=== PATIENT | female | born 1990 | race Caucasian/White ===

== ENCOUNTER 2019-07-09 17:46 | Emergency (ER) | payer SELFPAY ==
--- OUTSIDE RECORDS SUMMARY | 2019-07-09 17:48 | XMS REPORT ---
:1990 Author Organization [facility] t Address [facility] [place] [address] Care Team Providers Name Role Phone Unavailable Unavailable Unavailable Problems This patient has no known problems. Allergies, Adverse Reactions, Alerts This patient has no known allergies or adverse reactions. Medications Ordered Filled Start Stop Current Ordering Indication Dosage Frequency Signature Comments Components Medication Medication Date Date Medication? Clinician (SIG) Name Name Loestrin Fe Loestrin Fe No 1 Q1D Loestrin /20 1/20 Fe /20 (28-Day) 1 (28-Day) 1 (28-Day) 1 mg-20 mcg mg-20 mcg mg-20 mcg (21)/75 mg (21)/75 mg (21)/75 mg (7) tablet (7) tablet (7) tablet Take 1 Take 1 Take 1 tablet tablet tablet every day every day every day by oral by oral by oral route. route. route. Vital Signs Vital Name Observation Time Observation Value Comments BP Diastolic 2019-04-21 00:00:00 78 mm[Hg] Height 2019-04-21 00:00:00 66 [in_i] BP Systolic 2019-04-21 00:00:00 136 mm[Hg] Body Weight 2019-04-21 00:00:00 135 [lb_av] Procedures and Interventions Procedure Date / Time Performed Performing Clinici an US, transvaginal 2019-04-21 00:00:00 Tubal Ligation 2015-04-03 00:00:00 Plan of Care Planned Activity Planned Date Comments Encounters Start End Encounter Admission Attending Care Care Encounter Date/Time Date/Time Type Type Clinicians Facility Department ID 2019-04-21 2019-04-21 Gracie Portillo [facility] [place] - 00:00:00 00:00:00 BEATRICE Nur: Mohamud [address], [place], [place] SPECIAL PROCEDURES TECHNOLOGIST [phone], Ph.
--- OUTSIDE RECORDS SUMMARY | 2019-07-09 17:49 | XMS REPORT | Summary of Care ---
:1990 Author Organization [facility] Address [address] [place] [id number] Care Team Providers Name Role Phone Fuentes Walker MD Primary Care Provider Reason for Visit Reason Comments Notification health maintenance Encounter Details Date Type Department Care Team Description 10/12/2018 Telephone [facility] Health Wellness Des Walker III, N otification (health and Outreach MD maintenance) [address] [facility] [address] [place], [place] [phone] Allergies No Known Allergiesdocumented as of this encounter (statuses as of 10/12/2018) Medications Medication Sig Dispensed Refills Start Date End Date Status multivitamin Take 1 Tab by 100 Tab 2 07/16/2012 Active 90-1-50 mg tablet mouth daily. cyclobenzaprine Take 1 tablet by 10 tablet 0 08/10/2015 Active (FLEXERIL) 5 mg tablet mouth at bedtime as needed for Muscle Spasms. naproxen sodium Take 1 tablet by 14 tablet 0 08/10/2015 Active (ANAPROX) 550 mg tablet mouth 2 (two) times daily with meals. acetaminophen-codeine Take 1 tablet by 20 tablet 0 08/10/2015 Active (TYLENOL-CODEINE #3) mouth every 6 300-30 mg tablet (six) hours as needed for Pain (scale 7-10). ibuprofen 800 mg tablet Take 1 tablet by 30 tablet 0 8 Active mouth every 8 (eight) hours. traMADOL 50 mg tablet Take 1 tablet by 30 tablet 0 03/14/2017 Active mouth every 6 (six) hours as needed for Pain (scale 4-6). traMADOL 50 mg tablet Take 1 tablet by 30 tablet 0 03/14/2017 Active mouth every 6 (six) hours as needed for Pain (scale 4-6). venlafaxine XR 37.5 mg Take 1 capsule 90 capsule 3 05/26/2018 Active 24 hr by mouth daily capsuleIndications: with breakfast. Depression, unspecified depression type ondansetron (ZOFRAN Take 1 tablet by 14 tablet 0 09/04/2018 Active ODT) 4 mg mouth every 8 disintegrating (eight) hours as tabletIndications: needed for Lower abdominal pain Nausea and Vomiting (N/V). documented as of this encounter (statuses as of 10/12/2018) Active Problems Problem Noted Date Rubella immune 08/07/2012 Immune to varicella 08/07/2012 Chlamydia trachomatis infection of lower genitourinary sites 07/31/2012 Need for prophylactic vaccination with unspecified com bined vaccine 07/31/2012 Overview: Needs a Tdap this Insufficient care 07/16/2012 documented as of this encounter (statuses as of 10/12/2018) Immunizations Name Administration Dates Next Due Td 03/10/2011 documented as of this encounter Social History Tobacco Use Types Packs/Day Years Used Date Current Every Day Smoker Cigarettes 0.5 3 Smokeless Tobacco: Never Used Alcohol Use Drinks/Week oz/Week Comments No Sex Assigned at Date Recorded Not on file Job Start Date Occupation Industry Not on file Not on file Not on file Travel History Travel Start Travel End No recent travel history available. documented as of this encounter Last Filed Vital Signs Not on filedocumented in this encounter Plan of Treatment Health Maintenance Due Date Last Done Comments PNEUMOCOCCAL 0-64 YEARS COMBINED SERIES (1 of 1 - 09/19/1997 PPSV23) VARICELLA VACCINES (1 of 2 - 13+ 2-dose series) 09/19/2004 DTaP,Tdap,and Td Vaccines (1 - Tdap) 03/11/2011 03/10/2011 PAP SMEAR 09/19/2012 INFLUENZA VACCINE 11/08/2018 documented as of this encounter Results Not on filedocumented in this encounter Insurance Payer Benefit Plan / Subscriber ID Effective Dates Phone Addre ss Type Group CONTINUUM CONTINUUM [id number] CLAIM 2015-[employer] Agency GENERIC GENERIC t documented as of this encounter
--- OUTSIDE RECORDS SUMMARY | 2019-07-09 17:49 | XMS REPORT | Encounter Summary ---
:1990 Author Reason for Visit problem visit Instructions 1. Intermenstrual bleeding - irr egular pap, IG + CT/NG/TV CBC w/ auto diff TSH, ultra-sensitive, seru m testosterone, free + total , serum insulin, serum estrogen, total, serum US, transvaginal Loestrin Fe 03/29 (28-Day) 1 mg-20 mcg (21)/75 mg (7) tablet Discussion Note Pelvic exam performed. Ppa obtained . Reviewed differential dx and possible tx. Will order hormone labs today and send o rder for TVUS to [facility]. Will send script to pharmacy for Loestrin 1 po qd x 28 days. Will notify patient with results and POC. rtc prn. ml Patient educational handouts: No information available. Plan of Care Reminders Provider Appointments None recorded. Lab Pap, IG + [facility] CT/NG/TV 04/21/2019 CBC W/ Auto [facility] Diff 04/21/2019 TSH, [facility] Ultra-sensitive, Serum 04/21/2019 Testosterone, [facility] Free + Total, Serum 04/21/2019 Insulin, Serum [facility] 04/21/2019 Estrogen, [facility] Total, Serum 04/21/2019 Referral None recorded. Procedures None recorded. Surgeries None recorded. Imaging US, [facility] Trans[facility]aginal 04/21/2019 [facility] ([facility]) Medications Name Start Date Loestrin Fe 03/29 (28-Day) 1 mg-20 mcg (21)/75 mg (7) t ablet Take 1 tablet every day by oral route. Medications Administered None recorded. Vitals Height Weight BMI Blood Pressure 5 ft 6 in 135 lbs 21.8 kg/m2 136/78 mm[Hg] Results Lab Results None recorded. Allergies Code Code System Name Reaction Severity Status Onset NKDA Problems No Known Problems Procedures Date Name Performed by 04/03/2015 Tubal Ligation Information not avai lable 04/21/2019 US, Transvaginal [facility] ([facility]) [address] [place] [address] (Work Place) Vaccine List None recorded. Social History Tobacco Smoking Status Never Smoker Past Encounters 04/21/2019 Intermenstrual Bleeding - Irregular Gracie Lindsey Nur, NUT PROCESS HELPER: [address], [place] [phone], Ph. History of Present Illness Note: <p>Patient is 28 yo female in c/o DUB since february. States LMP 04/15/19 but since february will stop bleeding for 5 days max then start again. heavy with pelvic pain. Hx of BTL. Last pap- 2015. Denies any new dx or stressors recently. ml</p> Review of Systems [facility] DiClemen te Reported By: Patient Constitutional: Constitutional: no fatigue, no fever, no significant weight gain, no significant weight loss, (normal) appetite Skin: Skin: no abnormal moles, no rashes, no itching Eyes: Eyes: no irritation, no visi on changes, does not wear glasses or contacts ENMT: ENT: no hearing loss, no ear pain, no nose/sinus problems, no sore throat Respiratory: Respiratory: no dyspnea / sh ortness of breath, no wheezing, no cough Cardiovascular: Cardiovascular: no chest hayde n, no palpitations, no orthopnea, no leg swelling Gastrointestinal: Gastrointestinal: no nausea, no vomiting, no diarrhea, no constipation, no heartburn, no abdominal pain Musculoskeletal: Musculoskeletal: no muscle a ches, no arthralgias/joint pain, no back pain Hematologic/Lymphatic: Hematologic/Lymphatic no bru ising, (normal) excessive bleeding Genitourinary: Urinary symptoms no urinary urgency, no urinary frequency, no dysuria, no urinary incontin ence, no flank pain. Menstrual: no PMDD symptoms, excessive ble eding during period (menorrhagia), pain with periods (dysmenorr hea). Gynecologic no vaginal discharge, no vaginal itchin g, no genital lesion, genital: pelvic pain breast symptoms: Breast no breast lump, no br east pain, no breast tenderness, no nipple discharge Endocrine: Menopausal: no menopausal sy mptoms Neurological: Neurologic: no weakness, no dizziness, no spinning dizziness (vertigo), no headaches Psychological: Psych: no depression, no sle ep disturbances, no anxiety Allergic/Immunologic: Allergy/Immunologic: no runn y nose, no itching of eyes/throat, no hives, no frequent sneezi ng Physical Exam Brief Pelvic Exam Reported By: Patient Skin: Appearance: no rashes, no le sions Female Genitalia: Vulva: no masses, no atrophy , no lesions. Vagina: no tenderness, no erythema, no abnormal vagina l discharge, no vesicle(s) or ulcers, no cystocele, no rectocele, normal atrophy; blood noted in vault. ml. Cervix: grossly normal, no discharge, no cervical motion tenderness, sample taken for a Pap smear. Uterus: normal size, normal shape, midline, no ut erine prolapse, mobile, non-tender. Bladder/Urethra: normal meat us, no urethral discharge, no urethral mass, bladder non distended. Adnexa/Parametria: no parametrial tenderness, no parametrial m ass, no adnexal tenderness, no ovarian mass
--- NOTE | 2019-07-09 19:34 | EDPHYS ---
Physician Documentation [facility] Name: Enma Holley Age: 28 yrs Sex: Female : 1990 Arrival Date: 07/09/2019 Time: 17:49 Bed 23 Private MD: ED Physician Chong Mcclain HPI: 07/08 19:33 This 28 yrs old Female presents to ER via Ambulatory with complaints of kb Insect Bite. 19:33 The patient presents with an abscess of the right quadriceps. Description: kb erythematous, swollen, warm. Onset: The symptoms/episode began/occurred 4 day(s) ago. Possible cause(s): unknown. Associated signs and symptoms: Pertinent positives: erythema, swelling, Pertinent negatives: discharge, drainage, foreign body sensation, fever, headache, nausea, shortness of breath, vomiting. Modifying factors: the symptoms are alleviated by nothing, the symptoms are aggravated by pressure, squeezing the lesion and expressing the contents, touching. Severity of symptoms: At their worst the symptoms were mild, in the emergency department the symptoms are unchanged. The patient has not experienced similar symptoms in the past. The patient has not recently seen a physician. 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 - Social history:: Smoking status: Patient denies any tobacco usage or history of. ROS: 19:31 Constitutional: Negative for fever, chills, and weight loss, Cardiovascular: Negative kb for chest pain, palpitations, and edema, Respiratory: Negative for shortness of breath, cough, wheezing, and pleuritic chest pain, Abdomen/GI: Negative for abdominal pain, nausea, vomiting, diarrhea, and constipation, Back: Negative for injury and pain, MS/Extremity: Negative for injury and deformity, Neuro: Negative for headache, weakness, numbness, tingling, and seizure. 19:31 Skin: Positive for abscess, of the right quadriceps. Exam: 19:31 Constitutional: This is a well developed, well nourished patient who is awake, alert, kb and in no acute distress. Head/Face: Normocephalic, atraumatic. Chest/axilla: Normal chest wall appearance and motion. Nontender with no deformity. No lesions are appreciated. Cardiovascular: Regular rate and rhythm with a normal S1 and S2. No gallops, murmurs, or rubs. Normal PMI, no JVD. No pulse deficits. Respiratory: Lungs have equal breath sounds bilaterally, clear to auscultation and percussion. No rales, rhonchi or wheezes noted. No increased work of breathing, no retractions or nasal flaring. Abdomen/GI: Soft, non-tender, with normal bowel sounds. No distension or tympany. No guarding or rebound. No evidence of tenderness throughout. MS/ Extremity: Pulses equal, no cyanosis. Neurovascular intact. Full, normal range of motion. Neuro: Awake and alert, GCS 15, oriented to person, place, time, and situation. Cranial nerves II-XII grossly intact. Motor strength 5/5 in all extremities. Sensory grossly intact. Cerebellar exam normal. Normal gait. 19:31 Skin: abscess, that is small, of the right quadriceps, with induration, with surrounding cellulitis, that is very mild. Vital Signs: 17:52 BP 115 / 72; Pulse 92; Resp 16; Temp 99.1; Pulse Ox 99% ; Weight 61.23 kg; Height 5 ft. sv 6 in. (167.64 cm); 19:40 BP 125 / 79; Pulse 64; Resp 18; Temp 99.0(O); Pulse Ox 99% on R/A; Pain 3/10; fc 17:52 Body Mass Index 21.79 (61.23 kg, 167.64 cm) sv MDM: 19:27 Patient medically screened. [facility] 19:31 Data reviewed: vital signs, nurses notes. Data interpreted: Pulse oximetry: on room air kb is 99 %. Interpretation: normal. Counseling: I had a detailed discussion with the patient and/or guardian regarding: the historical points, exam findings, and any diagnostic results supporting the discharge/admit diagnosis, the need for outpatient follow up, a family practitioner, to return to the emergency department if symptoms worsen or persist or if there are any questions or concerns that arise at home. Administered Medications: 19:40 Drug: Bactrim (160 mg-800 mg (DS) 1 tablet Route: PO; fc 19:49 Follow up: Response: No adverse reaction; Medication administered at discharge. fc Disposition: 07/09 14:35 Co-signature as Attending Physician, Chong Mcclain MD I agree with the assessment and [facility] plan of care. Disposition: 07/09/19 19:34 Discharged to Home. Impression: Cutaneous abscess of right lower limb. - Condition is Stable. - Discharge Instructions: Skin Abscess, [id number]. - Prescriptions for Bactrim DS 800- 160 mg Oral Tablet - take 1 tablet by ORAL route every 12 hours for 7 days; 14 tablet. - Medication Reconciliation Form, Thank You Letter, Antibiotic Education, Prescription Opioid Use form. - Follow up: Emergency Department; When: As needed; Reason: Worsening of condition. Follow up: Private Physician; When: 2 - 3 days; Reason: Recheck today's complaints, Continuance of care, Re-evaluation by your physician. Signatures: Elba Delacruz, CHRISTIAN-Fuentes GONZALES-Liudmila Santos, RN RN Chong Mcclain MD MD cha Chretien, Felicia RN RN Corrections: (The following items were deleted from the chart) 07/08 19:52 19:34 07/09/2019 19:34 Discharged to Home. Impression: Cutaneous abscess of right lower fc limb. Condition is Stable. Forms are Medication Reconciliation Form, Thank You Letter, Antibiotic Education, Prescription Opioid Use. Follow up: Emergency Department; When: As needed; Reason: Worsening of condition. Follow up: Private Physician; When: 2 - 3 days; Reason: Recheck today's complaints, Continuance of care, Re-evaluation by your physician. kb
--- NOTE | 2019-07-09 19:34 | ER ---
Nurse's Notes [facility] Name: Enma Holley Age: 28 yrs Sex: Female : 1990 Arrival Date: 07/09/2019 Time: 17:49 Bed 23 Private MD: Diagnosis: Cutaneous abscess of right lower limb Presentation: 07/08 17:51 Chief complaint: Patient states: right thigh abscess, unknown insect bite x 3-4 days. sv Has increased in size. Coronavirus screen: Proceed with normal triage. Patient denies a cough. Patient denies shortness of breath or difficulty breathing. Patient denies measured and/or subjective temperature greater than 100.4F prior to today's visit. Patient denies travel on a cruise ship or to a country the [facility] currently lists as an affected area. Patient denies contact with known and/or suspected case of COVID-19. Ebola Screen: No symptoms or risks identified at this time. Risk Assessment: Do you want to hurt yourself or someone else? Patient reports no desire to harm self or others. Onset of symptoms was July 05, 2019. 17:51 Method Of Arrival: Ambulatory sv 17:51 Acuity: CHANEL 4 sv 17:52 Initial Sepsis Screen: Does the patient meet any 2 criteria? HR > 90 bpm. No. Patient's sv initial sepsis screen is negative. Does the patient have a suspected source of infection? Yes: Skin breakdown/wound. Triage Assessment: 17:55 Bite description: bite sustained to right quadriceps was sustained 3-4 days by an sv unknown animal, animal information: vaccination(s) is unknown. General: Appears in no apparent distress. uncomfortable, Behavior is calm, cooperative, appropriate for age. Neuro: Level of Consciousness is awake, alert, obeys commands, Gait is steady. Respiratory: Respiratory effort is even, unlabored. Derm: Abscess located on right quadriceps. 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 - Social history:: Smoking status: Patient denies any tobacco usage or history of. Screenin:15 Abuse screen: Denies threats or abuse. Nutritional screening: No deficits noted. fc Tuberculosis screening: No symptoms or risk factors identified. Fall Risk None identified. Assessment: 19:15 General: Appears uncomfortable, slender, Behavior is calm, cooperative, appropriate for fc age. Pain: Complains of pain in right quadriceps Pain currently is 0 out of 10 on a pain scale. at worst was 8 out of 10 on a pain scale. Quality of pain is described as burning, aching, throbbing, Pain began gradually, Is intermittent, Aggravated by increased activity, repositioning, weight bearing. Neuro: Level of Consciousness is awake, alert, obeys commands, Oriented to person, place, time, situation, Appropriate for age. Cardiovascular: No deficits noted. Respiratory: No deficits noted. GI: No deficits noted. : No deficits noted. EENT: No deficits noted. Derm: Skin is intact, Skin is dry, Skin is pink, Skin temperature is warm indurated area to right thigh with pin point black scab to center. Musculoskeletal: Circulation, motion, and sensation intact. Capillary refill < 3 seconds, Range of motion: intact in all extremities. 19:25 Reassessment: Elba SALES SUPPORT ASSOCIATE in to see and examine pt. fc 19:45 Reassessment: PT given medication as ordered and is not wanting to wait med time. fc Explained possible reactions and she states that she will return if any noted problems. Vital Signs: 17:52 BP 115 / 72; Pulse 92; Resp 16; Temp 99.1; Pulse Ox 99% ; Weight 61.23 kg; Height 5 ft. sv 6 in. (167.64 cm); 19:40 BP 125 / 79; Pulse 64; Resp 18; Temp 99.0(O); Pulse Ox 99% on R/A; Pain 3/10; fc 17:52 Body Mass Index 21.79 (61.23 kg, 167.64 cm) sv ED Course: 17:49 Patient arrived in ED. as 17:51 Arm band placed on. sv 17:52 Triage completed. sv 17:54 Elba Delacruz FNP-C is [facility]. kb 17:54 Chong Mcclain MD is Attending Physician. kb 19:15 Patient has correct armband on for positive identification. Placed in gown. Bed in low fc position. Call light in reach. 19:34 No provider procedures requiring assistance completed. Patient did not have IV access fc during this emergency room visit. Administered Medications: 19:40 Drug: Bactrim (160 mg-800 mg (DS) 1 tablet Route: PO; fc 19:49 Follow up: Response: No adverse reaction; Medication administered at discharge. fc Outcome: 19:34 Discharge ordered by . dwight 19:45 Discharged to home ambulatory. fc 19:45 Condition: good 19:45 Discharge instructions given to patient, Instructed on discharge instructions, medication usage, wound care, Demonstrated understanding of instructions, follow-up care, medications, wound care, Prescriptions given X 1. 19:52 Patient left the ED. fc Signatures: Elba Delacruz, MANAGER PARKING-C MANAGER PARKING-Liudmila Santos RN RN sv Maryana Whitfield RN RN Zahraa Larry as Corrections: (The following items were deleted from the chart) 17:54 17:52 Pulse 92bpm; Resp 16bpm; Pulse Ox 99%; Temp 99.1F; 61.23 kg; Height 5 ft. 6 in.; sv BMI: 21.7; sv
[2019-07-09] MEDS ORDERED: SMZ./TMP. 800/160 MG TABLET ONE (19:47)
== END 2019-07-09 19:52 | disposition home or self-care (01) ==
LOC: ER 17:46
DX: L02.415 Cutaneous abscess of right lower limb (principal); W57.XXXA Bitten or stung by nonvenomous insect and other nonvenomous arthropods, initial encounter; Y93.9 Activity, unspecified; Y92.9 Unspecified place or not applicable
CPT/HCPCS: 99283

== ENCOUNTER 2020-08-30 09:20 | Emergency (ER) | payer SELFPAY ==
--- OUTSIDE RECORDS SUMMARY | 2020-08-30 09:23 | XMS REPORT | Continuity of Care Document ---
:1990 Author Organization [facility] t Address [address] [place] [address] Care Team Providers Name Role Phone Fuentes Walker MD Attending Clinician Problems This patient has no known problems. Allergies, Adverse Reactions, Alerts This patient has no known allergies or adverse reactions. Social History Smoking Status Start Date Stop Date Source Never Smoker [facility] Medications Ordered Filled Start Stop Current Ordering Indication Dosage Frequency Signature Comments Components Source Medication Medication Date Date Medication? Clinician (SIG) Name Name Loestrin Fe Loestrin Fe No 1 Q1D Loestrin [place] 03/29 03/29 Fe 03/29 da (28-Day) 1 (28-Day) 1 (28-Day) 1 [facility] mg-20 mcg mg-20 mcg mg-20 mcg al (21)/75 mg (21)/75 mg (21)/75 mg Health (7) tablet (7) tablet (7) tablet [place] Take 1 Take 1 Take 1 h tablet tablet tablet Program every day every day every day by oral by oral by oral route. route. route. Vital Signs Vital Name Observation Time Observation Value Comments Source Body Weight 2019-04-21 00:00:00 135 [lb_av] [facility] BP Diastolic 2019-04-21 00:00:00 78 mm[Hg] [facility] Height 2019-04-21 00:00:00 66 [in_i] [facility] BMI (Body Mass 2019-04-21 00:00:00 21.8 kg/m2 [facility] Index) [facility] BP Systolic 2019-04-21 00:00:00 136 mm[Hg] [place] [facility] Procedures Procedure Date / Time Performed Performing Clinician Sour e US, transvaginal 2019-04-21 00:00:00 [facility] Tubal Ligation 2015-04-03 00:00:00 [facility] Plan of Care Planned Activity Planned Date Details Comments Source Diagnostic Test 2019-04-21 pap, IG + CT/NG/TV [facility] [employer] [facility] Pending 00:00:00 [code = pap, IG + Health Out reach CT/NG/TV] Program Diagnostic Test 2019-04-21 CBC w/ auto diff [place] [facility] Pending 00:00:00 [code = CBC w/ Health Outrea ch auto diff] Program Diagnostic Test 2019-04-21 TSH, [facility] [facility] Pending 00:00:00 ultra-sensitive, Health Outr each serum [code = TSH, Program ultra-sensitive, serum] Diagnostic Test 2019-04-21 testosterone, free [facility] teacher [facility] Pending 00:00:00 + total, serum Health Outrea ch [code = Program testosterone, free + total, serum] Diagnostic Test 2019-04-21 insulin, serum [place] [facility] Pending 00:00:00 [code = insulin, Health Outr each serum] Program Diagnostic Test 2019-04-21 estrogen, total, [place] [facility] Pending 00:00:00 serum [code = Health Outreac h estrogen, total, Program serum] Encounters Start End Encounter Admission Attending Care Care Encounter Source Date/Time Date/Time Type Type Clinicians Facility Department ID 2019-04-21 2019-04-21 Gracie ELIZABETH [place] - [id number] Ivelisse [facility] 00:00:00 00:00:00 Lindsey Dyer, [facility] p 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 2018-10-12 2018-10-12 Telephone Des Walker [id number] 00:00:00 00:00:00 C Dakota [id number] Tanisha [id number] Results This patient has no known results.
--- NOTE | 2020-08-30 10:53 | RAD REPORT ---
EXAM DESCRIPTION: RAD - Chest Single View - 08/30/2020 10:15 am CLINICAL HISTORY: SOB Chest pain. COMPARISON: No comparisons FINDINGS: Portable technique limits examination quality. The lungs are grossly clear. The heart is normal in size. No displaced fractures. Mild thoracic dextr oscoliosis. IMPRESSION: No acute intrathoracic process suspected.
[2020-08-30 11:13] LABS: Protime INR 1.16
[2020-08-30] MEDS ORDERED: MECLIZINE HCL 12.5 MG TAB ONE (11:13)
[2020-08-30] MEDS ORDERED: NA CHLORIDE 0.9% 500 ML ONE (11:14)
[2020-08-30 11:18] LABS: Absolute Lymphocytes (CBC) 1.8 K/uL (0.7-4.9); Basophils % 0.4 % (0-1.3); Hematocrit 46.1 % (36.0-45.0); Lymphocytes % 23.1 % (15.3-44.8); MPV 7.9 fL (7.6-11.3); RBC Red Blood Cell Count 4.85 M/uL (3.86-4.86)
[2020-08-30 11:27] LABS: ALT/SGPT 24 U/L (12-78); AST/SGOT 19 U/L (15-37); Albumin 4.1 g/dL (3.4-5.0); Alkaline Phosphatase 53 U/L (45-117); BUN Blood Urea Nitrogen 9 mg/dL (7-18); Bicarbonate 29 mmol/L (21-32); Bilirubin Direct 0.2 mg/dL (0-0.2); Bilirubin Total 0.6 mg/dL (0.2-1.0); Glucose Level 74 mg/dL (74-106); Magnesium 2.3 mg/dL (1.8-2.4); Potassium 4.1 mmol/L (3.5-5.1); Protein, Total 7.2 g/dL (6.4-8.2); Sodium Level 138 mmol/L (136-145); Troponin (Emerg Dept Use Only) < 0.02 ng/mL (0.0-0.045)
--- NOTE | 2020-08-30 12:15 | RAD REPORT ---
EXAM DESCRIPTION: CT - Head Brain Wo Cont - 08/30/2020 12:07 pm CLINICAL HISTORY: near syncope;Dizziness Headache, drowsiness COMPARISON: No comparisons TECHNIQUE: All CT scans are performed using dose optimization technique as appropriate and may inclu de automated exposure control or mA/KV adjustment according to patient size. FINDINGS: No intracranial hemorrhage, hydrocephalus or extra-axial fluid collection.No areas of brai n edema or evidence of midline shift. The paranasal sinuses and mastoids are clear. The calvarium is intact. IMPRESSION: No acute intracranial abnormality.
--- NOTE | 2020-08-30 13:12 | EDPHYS ---
Physician Documentation [facility] Name: Enma Holley Age: 29 yrs Sex: Female : 1990 Arrival Date: 08/30/2020 Time: : Bed 19 Private MD: ED Physician Kb Blake HPI: 08/30 09:50 This 29 yrs old Female presents to ER via Ambulatory with complaints of cp Dizziness, Black Outs. 09:50 The patient presents with dizziness, feeling faint, lightheadedness. Onset: The cp symptoms/episode began/occurred today. Context: occurred at home, just prior to the episode the patient experienced no apparent symptoms. Associated signs and symptoms: Pertinent positives: near-syncope, palpitations, Pertinent negatives: chest pain, focal weakness, headache. Severity of symptoms: in the emergency department the symptoms are unchanged despite home interventions. Patient's baseline: Neuro: alert and fully oriented, Motor: no deficits, Ambulation: walks without assistance, Speech: normal. 09:50 Patient reports she has had similar episodes in the past since the age of 14 and cause cp was never diagnosed. 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 - Social history:: Smoking status: . ROS: 09:55 Constitutional: Negative for body aches, chills, fever, poor PO intake. cp 09:55 Eyes: Negative for injury, pain, redness, and discharge. cp 09:55 ENT: Negative for ear pain, sore throat, difficulty swallowing, difficulty handling secretions. 09:55 Cardiovascular: Positive for palpitations, Negative for chest pain. 09:55 Respiratory: Negative for cough, shortness of breath, wheezing. 09:55 Abdomen/GI: Negative for abdominal pain, nausea, vomiting, and diarrhea. 09:55 : Negative for urinary symptoms. 09:55 Neuro: Positive for dizziness, near syncope, Negative for altered mental status, headache, syncope, weakness. 09:55 All other systems are negative. Exam: 10:00 Constitutional: The patient appears in no acute distress, alert, awake, cp non-diaphoretic, non-toxic, well developed, well nourished. 10:00 Head/Face: Normocephalic, atraumatic. cp 10:00 Eyes: Pupils: equal, round, and reactive to light and accomodation, Extraocular movements: intact throughout, Conjunctiva: normal, no exudate, no injection, Sclera: no appreciated abnormality, Lids and lashes: appear normal, bilaterally. 10:00 ENT: External ear(s): are unremarkable, Ear canal(s): are normal, clear, TM's: dullness, bilaterally, Nose: is normal, Mouth: Lips: moist, Oral mucosa: moist, Posterior pharynx: Airway: no evidence of obstruction, patent. 10:00 Neck: ROM/movement: is normal, is supple, without pain, no range of motions limitations. 10:00 Chest/axilla: Inspection: normal, Palpation: is normal, no crepitus, no tenderness. 10:00 Cardiovascular: Rate: normal, Rhythm: regular. 10:00 Respiratory: the patient does not display signs of respiratory distress, Respirations: normal, no use of accessory muscles, no retractions, labored breathing, is not present, Breath sounds: are clear throughout, no decreased breath sounds, no stridor, no wheezing. 10:00 Abdomen/GI: Inspection: abdomen appears normal, Palpation: abdomen is soft and non-tender, in all quadrants. 10:00 Back: pain, is absent, ROM is normal. 10:00 Neuro: Orientation: to person, place \T\ time. Mentation: is normal, Cerebellar function: is grossly normal, Motor: moves all fours, strength is normal, Sensation: no obvious gross deficits. 11:10 ECG was reviewed by the Attending Physician. cp Vital Signs: 09:26 BP 129 / 79; Pulse 87; Resp 17; Temp 98(TE); Pulse Ox 100% on R/A; Weight 63.5 kg; tw2 Height 5 ft. 6 in. (167.64 cm); 10:57 BP 107 / 66; Pulse 59; Resp 18; Pulse Ox 99% on R/A; ph 12:04 BP 102 / 64; Pulse 53; Resp 18; Pulse Ox 100% on R/A; ph 09:26 Body Mass Index 22.60 (63.50 kg, 167.64 cm) tw2 MDM: 09:47 Patient medically screened. cp 10:00 Differential diagnosis: cardiac arrhythmia, generalized weakness, GI bleed, cp hypovolemia, idiopathic dizziness, , TIA, vertigo. 13:10 Data reviewed: vital signs, nurses notes, lab test result(s), EKG, radiologic studies, cp CT scan, plain films. 13:10 Test interpretation: by ED physician or midlevel provider: ECG, plain radiologic cp studies. Counseling: I had a detailed discussion with the patient and/or guardian regarding: the historical points, exam findings, and any diagnostic results supporting the discharge/admit diagnosis, lab results, radiology results, the need for outpatient follow up, a hearing specialist, to return to the emergency department if symptoms worsen or persist or if there are any questions or concerns that arise at home. Response to treatment: the patient's symptoms have mildly improved after treatment. ED course: VSS. Reviewed results of labs, EKG and radiology studies. Patient stable,, will discharge to home for continued monitoring. 08/30 09:55 Order name: Basic Metabolic Panel 08/30 09:55 Order name: CBC with Diff cp 08/30 09:55 Order name: LFT's cp 08/30 09:55 Order name: Magnesium cp 08/30 09:55 Order name: PT-INR 08/30 09:55 Order name: Troponin (emerg Dept Use Only) cp 08/30 09:55 Order name: D-Dimer 08/30 11:17 Order name: Protime (+INR); Complete Time: 11:37 EDMS 08/30 13:07 Interpretation: Abnormal: PT 13.4. cp 08/30 11:17 Order name: D-Dimer; Complete Time: 11:37 EDMS 08/30 11:18 Order name: CBC with Automated Diff; Complete Time: 11:37 EDMS 08/30 13:06 Interpretation: Normal except: HGB 15.2; HCT 46.1; MCV 95.2; MCH 31.4. cp 08/30 11:27 Order name: Basic Metabolic Panel; Complete Time: 11:37 EDMS 08/30 13:06 Interpretation: Normal except: CL 108. cp 08/30 11:27 Order name: Liver (Hepatic) Function; Complete Time: 11:37 EDMS 08/30 11:27 Order name: Troponin (Emerg Dept Use Only); Complete Time: 11:37 EDMS 08/30 13:07 Interpretation: Within normal limits: TROPED < 0.02. 08/30 11:27 Order name: Magnesium; Complete Time: 11:37 EDMS 08/30 09:55 Order name: XRAY Chest (1 view) 08/30 09:55 Order name: EKG; Complete Time: 09:56 08/30 09:55 Order name: Cardiac monitoring; Complete Time: 10:58 08/30 09:55 Order name: EKG - Nurse/Tech; Complete Time: 10:57 08/30 09:55 Order name: IV Saline Lock; Complete Time: 10:57 08/30 09:55 Order name: Labs collected and sent; Complete Time: 10:58 08/30 09:55 Order name: O2 Per Protocol; Complete Time: 10:58 08/30 09:55 Order name: O2 Sat Monitoring; Complete Time: 10:58 08/30 10:54 Order name: RAD; Complete Time: 11:05 EDAZ 08/30 11:05 Interpretation: Report reviewed. 08/30 11:38 Order name: CT Head Brain wo Cont 08/30 12:16 Order name: CT; Complete Time: 13:06 EDMS 08/30 13:06 Interpretation: Report reviewed. EC:10 Rate is 61 beats/min. Rhythm is regular. NC interval is normal. QRS interval is normal. cp QT interval is normal. T waves are Inverted in leads aVL, aVR. Interpreted by me. Reviewed by me. Administered Medications: 11:24 Drug: Meclizine 25 mg Route: PO; ph 13:41 Follow up: Response: No adverse reaction ph 11:24 Drug: NS 0.9% 500 ml Route: IV; Rate: bolus; Site: right antecubital; ph 12:50 Follow up: Response: No adverse reaction; IV Status: Completed infusion; IV Intake: ph 500ml Disposition: 15:21 Co-signature as Attending Physician, Kb Blake MD. rn Disposition: 08/30/20 13:12 Discharged to Home. Impression: Dizziness and giddiness, Palpitations. - Condition is Stable. - Discharge Instructions: Dizziness, Holter Monitoring, Palpitations. - Prescriptions for Meclizine 25 mg Oral Tablet - take 1 tablet by ORAL route every 8 hours As needed; 30 tablet. - Medication Reconciliation Form, Work release form, Thank You Letter, Antibiotic Education, Prescription Opioid Use form. - Follow up: Jong Wallace MD; When: 1 - 2 days; Reason: Recheck today's complaints. - Problem is new. - Symptoms have improved. Signatures: Dispatcher [employer] EDMS Kb Blake MD MD rn Olivia Greer RN RN ph Chong Galvan PA PA cp Genevieve Styles RN RN tw2 Corrections: (The following items were deleted from the chart) 13:42 13:12 08/30/2020 13:12 Discharged to Home. Impression: Dizziness and giddiness; ph Palpitations. Condition is Stable. Forms are Work release form, Medication Reconciliation Form, Thank You Letter, Antibiotic Education, Prescription Opioid Use. Follow up: Jong Wallace; When: 1 - 2 days; Reason: Recheck today's complaints. Problem is new. Symptoms have improved. cp
--- NOTE | 2020-08-30 13:12 | ER ---
Nurse's Notes [facility] Name: Enma Holley Age: 29 yrs Sex: Female : 1990 Arrival Date: 08/30/2020 Time: : Bed 19 Private MD: Diagnosis: Dizziness and giddiness;Palpitations Presentation: 08/30 09:26 Chief complaint: Patient states: my dizzy spells started again, brayan had them since i tw2 was 14. they havent been able to figure out what it is yet. it hasnt happened for 4 or 5 months. its worse this time that what i remembered. Coronavirus screen: At this time, the client does not indicate any symptoms associated with coronavirus-19. Ebola Screen: Patient denies travel to an Ebola-affected area in the 21 days before illness onset. Initial Sepsis Screen: Does the patient meet any 2 criteria? No. Patient's initial sepsis screen is negative. Does the patient have a suspected source of infection? No. Patient's initial sepsis screen is negative. Risk Assessment: Do you want to hurt yourself or someone else? Patient reports no desire to harm self or others. Onset of symptoms was August 30, 2020. 09:26 Method Of Arrival: Ambulatory tw2 09:26 Acuity: CHANEL 3 tw2 Triage Assessment: 09:26 General: Appears in no apparent distress. slender, Behavior is calm, cooperative, tw2 appropriate for age. Pain: Denies pain. Neuro: Reports dizziness, "then my vision goes black,my heart either speeds up and i am almost hyperventilating or it slows down and i have a hard time breathing" Denies headache. 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 - Social history:: Smoking status: . Screenin:53 Abuse screen: Denies threats or abuse. Nutritional screening: No deficits noted. tw2 Tuberculosis screening: No symptoms or risk factors identified. Fall Risk None identified. Assessment: 10:55 General: Appears in no apparent distress. uncomfortable, slender, well groomed, ph Behavior is calm, cooperative, appropriate for age, Denies fever, feeling ill. Pain: Denies pain. Neuro: Level of Consciousness is awake, alert, obeys commands, Oriented to person, place, time, situation, Reports dizziness, since yesterday. Cardiovascular: Reports lightheadedness, Denies chest pain, nausea, vomiting, Capillary refill < 3 seconds in bilateral fingers Patient's skin is warm and dry. Respiratory: Airway is patent Respiratory effort is even, unlabored, Respiratory pattern is regular, symmetrical. GI: No signs and/or symptoms were reported involving the gastrointestinal system. Derm: Skin is intact, is healthy with good turgor, Skin is pink, warm \\T\\ dry. Musculoskeletal: Circulation, motion, and sensation intact. Range of motion: intact in all extremities. 12:03 Reassessment: Patient appears in no apparent distress at this time. Patient and/or ph family updated on plan of care and expected duration. Pain level reassessed. Patient is alert, oriented x 3, equal unlabored respirations, skin warm/dry/pink. Pt taken to CT. 13:06 Reassessment: Patient appears in no apparent distress at this time. Patient and/or ph family updated on plan of care and expected duration. Pain level reassessed. Patient is alert, oriented x 3, equal unlabored respirations, skin warm/dry/pink. Vital Signs: 09:26 BP 129 / 79; Pulse 87; Resp 17; Temp 98(TE); Pulse Ox 100% on R/A; Weight 63.5 kg; tw2 Height 5 ft. 6 in. (167.64 cm); 10:57 BP 107 / 66; Pulse 59; Resp 18; Pulse Ox 99% on R/A; ph 12:04 BP 102 / 64; Pulse 53; Resp 18; Pulse Ox 100% on R/A; ph 09:26 Body Mass Index 22.60 (63.50 kg, 167.64 cm) tw2 ED Course: 09:22 Patient arrived in ED. ds1 09:27 Triage completed. tw2 09:28 Arm band placed on. tw2 09:40 Bed in low position. Call light in reach. tw2 09:43 Chong Galvan PA is PHCP. cp 09:43 Kb Blake MD is Attending Physician. cp 09:57 Olivia Greer, RN is Primary Nurse. ph 10:57 Initial lab(s) drawn, by me, sent to lab. Inserted saline lock: 20 gauge in right ph antecubital area, using aseptic technique. Blood collected. 11:10 EKG done, by ED staff, reviewed by Kb Blake MD. 5 11:11 Side rails up X 1. Warm blanket given. radiation monitor on. Pulse ox on. NIBP on. mh5 13:11 Jong Wallace MD is Referral Physician. cp 13:41 No provider procedures requiring assistance completed. IV discontinued, intact, ph bleeding controlled, No redness/swelling at site. Pressure dressing applied. Administered Medications: 11:24 Drug: Meclizine 25 mg Route: PO; ph 13:41 Follow up: Response: No adverse reaction ph 11:24 Drug: NS 0.9% 500 ml Route: IV; Rate: bolus; Site: right antecubital; ph 12:50 Follow up: Response: No adverse reaction; IV Status: Completed infusion; IV Intake: ph 500ml Intake: 12:50 IV: 500ml; Total: 500ml. ph Outcome: 13:12 Discharge ordered by MD. cp 13:42 Discharged to home ambulatory. ph 13:42 Condition: good 13:42 Discharge instructions given to patient, Instructed on discharge instructions, follow up and referral plans. medication usage, Demonstrated understanding of instructions, follow-up care, medications, Prescriptions given X 1. 13:42 Patient left the ED. ph Signatures: Lizz Mckenzie ds1 Olivia Greer, RN RN ph Chong Galvan PA PA cp Genevieve Styles RN RN 2 Jennifer Gudino [facility]
[2020-08-30 13:55] VITALS: TEMP 98
[2020-08-30 13:58] VITALS: BP 102/64; O2SAT 100
--- NOTE | 2020-08-31 10:35 | EKG ---
Test Date: 2020-08-30 Test Time: 11:04:29 Athletic Equipment Custodian: LAXMI MEASUREMENT RESULTS: Intervals: Rate: 61 RI: 190 QRSD: 78 QT: 410 QTc: 412 [place]: P: 10 RI: 190 QRS: 97 T: 69 INTERPRETIVE STATEMENTS: Normal sinus rhythm with sinus arrhythmia Rightward axis Septal infarct, age undetermined Abnormal ECG No previous ECG available for comparison Electronically Signed On 08-31-20 10:31:59 CDT by Nigel Guold
== END 2020-08-30 13:42 | disposition home or self-care (01) ==
LOC: ER 09:20
DX: R00.2 Palpitations (principal)
CPT/HCPCS: 36415; 70450; 71045; 80048; 80076; 83735; 84484; 85025; 85379; 85610; 93005; 96360; 99284; J7040

== ENCOUNTER 2023-01-12 18:47 | Emergency (ER) | payer SELFPAY ==
--- OUTSIDE RECORDS SUMMARY | 2023-01-12 18:51 | XMS REPORT | Continuity of Care Document ---
:1990 Author Organization [facility] t Address [address] [place] [address] Care Team Providers Name Role Phone Myriam Blankenship MD Primary Care Physician [phone] Myriam Blankenship MD Attending Clinician [phone] MYRIAM BLANKENSHIP Attending Clinician Unavailable Giancarlo DESAISWCelia Attending Clinician Lab, Ang - Db Attending Clinician Unavailable JULI GENTILE Attending Clinician Unavailable ERNIE Attending Clinician Unavailable Ricardo Ambriz Attending Clinician [phone] JAM Attending Clinician Unavailable Des Walker MD Attending Clinician ERNIE Admitting Clinician Unavailable JAM Admitting Clinician Unavailable Payers Payer Name Policy Type Policy Number Effective Date Expiration Date S [facility] [id number] 2015 00:00:00 CHILDR[employer] STAR (MEDICAID HMO) Problems Condition Condition Condition Status Onset Resolution Last Treating Co mments Source Name Details Category Date Date Treatment Clinician Date ADHD ADHD Disease Active Univers 2 ity of 00:00: [place] 00 Medical Branch NINI NINI Disease Active Univers (generaliz (generaliz 04-10 it y of ed anxiety [place] disorder[place] disorder[place] 00 [facility] baldo Branch Conjunctiv Conjunctiv Disease Active 2022-1 U nivers al al 209 ity of pigmentati pigmentati [place] on[place] left on, left 00 Medica l Branch Anxiety Anxiety Problem Active 2020-03 [place] 0-15 Communi 00:00: ty 00 Hospita l Clinics Chest pain Chest Pain Problem Active 2020-03 S [place] 0-15 Communi 00:00: ty 00 Hospita l Clinics Attention Attention Problem Active 2020-03 Swe tiffany deficit Deficit 0-01 Communi hyperactiv Hyperactiv 00:00: ty ity ity 00 Hospita disorder, Disorder, l predominan Predominan Cl inics tly tly inattentiv Inattentiv e type e Type Rubella Rubella Disease Active Univers immune immune 08-07 ity of 00:00: [place] 00 Medical Branch Immune to Immune to Disease Active Uni vers varicella varicella 08-07 ity of 00:00: [address] Chlamydia Chlamydia Disease Active Uni vers trachomati trachomati 07-31 it y of s s 00:00: [place] infection infection 00 Medi baldo of lower of lower Branch genitourin genitourin shahzad sites shahzad sites Need for Need for Disease Active Overview: Un richa prophylact prophylact 07-31 Formattin ity of ic ic 00:00: g of this [place] vaccinatio vaccinatio 00 note Me dical n with n with might be Branch unspecifie unspecifie different d combined d combined from the vaccine vaccine original. Needs a Tdap this Insufficie Insufficie Disease Active U nivers nt nt 5-09 ity of 00:00: [address] Allergies, Adverse Reactions, Alerts Allergy Allergy Status Severity Reaction(s) Onset Inactive Treating Comm ents Source Name Type Date Date Clinician NO KNOWN Drug Active Univers ALLERGIE Class ity of S [facility] Social History Social Habit Start Date Stop Date Quantity Comments Source History of tobacco Cigarette Smoker [facility] use [facility] Sexual orientation Univer [facility] Cigarettes smoked 2022-08-28 2022-08-28 Univers ity of current (pack per 00:00:00 00:00:00 [place] ) - Reported Branch Cigarette 2022-08-28 2022-08-28 University of pack-years 00:00:00 00:00:00 [facility] Tobacco use and 2022-08-28 2022-08-28 Smokeless Universit y of exposure 00:00:00 00:00:00 tobacco non-user [facility] dical [place] Alcohol intake 2022-08-28 2022-08-28 Current University of 00:00:00 00:00:00 non-drinker of [facility] alcohol Branch (finding) History of Social 2022-08-28 2022-08-28 Univers ity of function 00:00:00 00:00:00 [facility] Sex [birth year] Universit y of 00:00:00 00:00:00 [facility] Smoking Status Start Date Stop Date Source Heavy Tobacco Smoker [facility] Never Smoker [facility] Smokes tobacco daily 2022-08-28 00:00:00 Univers ity [facility] [place] Medications Ordered Filled Start Stop Current Ordering Indication Dosage Frequency Signature Comments Components Source Medication Medication Date Date Medication? Clinician (SIG) Name Name PAROXETINE Yes [id number] 30mg TAKE 1 Univers 30 mg 8-29 TABLET BY ity of tablet 00:00: MOUTH [place] 00 EVERY Medical MORNING Branch PARoxetine Yes [id number] 30mg Take 1 Univers 30 mg 6-21 tablet by ity of tablet 00:00: mouth [place] 00 every Medical morning. Branch methocarbam Yes [id number] 500mg Take 1 Univers oL 500 mg 6-21 tablet by ity o f tablet 00:00: mouth 4 [place] 00 (four) Medical times Branch daily as needed for Pain (scale 7-10) (spasm). hydrOXYzine Yes [id number] 50mg Take 1 Univers 50 mg 6-21 tablet by ity of tablet 00:00: mouth [place] 00 every 8 Medical (eight) Branch hours as needed for Anxiety. PARoxetine 0 Yes [id number] 30mg Take 1 Univers 30 mg 6-21 tablet by ity of tablet 00:00: mouth [place] 00 every Medical morning. Branch methocarbam Yes [id number] 500mg Take 1 Univers oL 500 mg 6-21 tablet by ity o f tablet 00:00: mouth 4 [place] 00 (four) Medical times Branch daily as needed for Pain (scale 7-10) (spasm). hydrOXYzine 3-0 Yes [id number] 50mg Take 1 Univers 50 mg 6-21 tablet by ity of tablet 00:00: mouth [place] 00 every 8 Medical (eight) Branch hours as needed for Anxiety. PARoxetine 3-0 Yes [id number] 30mg Take 1 Univers 30 mg 6-21 tablet by ity of tablet 00:00: mouth [place] 00 every Medical morning. Branch methocarbam 3-0 Yes [id number] 500mg Take 1 Univers oL 500 mg 6-21 tablet by ity o f tablet 00:00: mouth 4 [place] 00 (four) Medical times Branch daily as needed for Pain (scale 7-10) (spasm). hydrOXYzine 3-0 Yes [id number] 50mg Take 1 Univers 50 mg 6-21 tablet by ity of tablet 00:00: mouth [place] 00 every 8 Medical (eight) Branch hours as needed for Anxiety. PARoxetine 3-0 Yes [id number] 30mg Take 1 Univers 30 mg 6-21 tablet by ity of tablet 00:00: mouth [place] 00 every Medical morning. Branch methocarbam 3-0 Yes [id number] 500mg Take 1 Univers oL 500 mg 6-21 tablet by ity o f tablet 00:00: mouth 4 [place] 00 (four) Medical times Branch daily as needed for Pain (scale 7-10) (spasm). hydrOXYzine 3-0 Yes [id number] 50mg Take 1 Univers 50 mg 6-21 tablet by ity of tablet 00:00: mouth [place] 00 every 8 Medical (eight) Branch hours as needed for Anxiety. PARoxetine 3-0 Yes [id number] 30mg Take 1 Univers 30 mg 6-21 tablet by ity of tablet 00:00: mouth [place] 00 every Medical morning. Branch methocarbam 2023-0 Yes [id number] 500mg Take 1 Univers oL 500 mg 6-21 tablet by ity o f tablet 00:00: mouth 4 [place] 00 (four) Medical times Branch daily as needed for Pain (scale 7-10) (spasm). hydrOXYzine 2023-0 Yes [id number] 50mg Take 1 Univers 50 mg 6-21 tablet by ity of tablet 00:00: mouth [place] 00 every 8 Medical (eight) Branch hours as needed for Anxiety. methocarbam 3-0 Yes [id number] 500mg Take 1 Univers oL 500 mg 6-21 tablet by ity o f tablet 00:00: mouth 4 [place] 00 (four) Medical times Branch daily as needed for Pain (scale 7-10) (spasm). hydrOXYzine 3-0 Yes [id number] 50mg Take 1 Univers 50 mg 6-21 tablet by ity of tablet 00:00: mouth [place] 00 every 8 Medical (eight) Branch hours as needed for Anxiety. PARoxetine 3-0 2023- No [id number] 30mg Take 1 Univers 30 mg 6-21 08-29 tablet by ity of tablet 00:00: 00:00 mouth [place] 00 :00 every Medical morning. Branch lisdexamfet 2023-0 2023- No 40mg Take 1 Uni vers amine 40 mg 4-19 -21 capsule by i ty of capsule 00:00: 00:00 mouth in [place] 00 :00 the Medical morning. Branch lisdexamfet 3-0 2023- No 40mg Take 1 Uni vers amine 40 mg 4-26 08-21 capsule by i ty of capsule 00:00: 00:00 mouth in [place] 00 :00 the Medical morning. Branch PARoxetine 2023-0 2023- No 30mg Take 1 Univ ers 30 mg 3-29 -21 tablet by ity of tablet 00:00: 00:00 mouth [place] 00 :00 every Medical morning. Branch PARoxetine 2023-0 2023- No 30mg Take 1 Univ ers 30 mg 3-29 -21 tablet by ity of tablet 00:00: 00:00 mouth [place] 00 :00 every Medical morning. Branch meclizine 2023-0 2023- No 25mg Take 1 Unive rs 25 mg 3-10 06-21 tablet by ity of tablet 00:00: 00:00 mouth 3 [place] 00 :00 (three) Medical times Branch daily as needed. hydrOXYzine 2023-0 2023- No 50mg Take 1 Uni vers 50 mg 3-10 06-21 tablet by ity of tablet 00:00: 00:00 mouth 3 [place] 00 :00 (three) Medical times Branch daily as needed. meclizine 2023-0 2023- No 25mg Take 1 Unive rs 25 mg 3-10 06-21 tablet by ity of tablet 00:00: 00:00 mouth 3 [place] 00 :00 (three) Medical times Branch daily as needed. hydrOXYzine 2022- No 50mg Take 1 Uni vers 50 mg 05-17 tablet by ity of tablet 00:00: 00:00 mouth 3 [place] 00 :00 (three) Medical times Branch daily as needed. methocarbam 2021-03- No 500mg Take 1 Un richa oL 500 mg 04-25- tablet by ity of tablet 00:00: 00:00 mouth 4 [place] 00 :00 (four) Medical times Branch daily as needed. methocarbam 2021-03- No 500mg Take 1 Un richa oL 500 mg 04-25- tablet by ity of tablet 00:00: 00:00 mouth 4 [place] 00 :00 (four) Medical times Branch daily as needed. melatonin melatonin No melatonin [place] Take 1 by Take 1 by 08-09 Take 1 by da mouth at mouth at 00:00: mouth at E piscop bedtime prn bedtime prn 00 bedtime al as as prn as Health directed. directed. directed. Outreac h Program venlafaxine 2022- No [id number] 37.5mg Take 1 Univers XR 37.5 mg 05-26- capsule by it y of 24 hr 00:00: 00:00 mouth [place] capsule 00 :00 daily with Medica l breakfast. Branch venlafaxine 2022- No [id number] 37.5mg Take 1 Univers XR 37.5 mg 05-26- capsule by it y of 24 hr 00:00: 00:00 mouth [place] capsule 00 :00 daily with Medica l breakfast. Branch traMADOL 50 2022- No 50mg Take 1 Uni vers mg tablet 03-14- tablet by ity of 00:00: 00:00 mouth [place] 00 :00 every 6 Medical (six) Branch hours as needed for Pain (scale 4-6). traMADOL 50 2022- No 50mg Take 1 Uni vers mg tablet 03-14- tablet by ity of 00:00: 00:00 mouth [place] 00 :00 every 6 Medical (six) Branch hours as needed for Pain (scale 4-6). hydroxyzine hydroxyzine No hydroxyzin [place] pamoate 25 pamoate 25 e pamoate Communi mg capsule mg capsule 25 mg ty TAKE 1 TAKE 1 capsule Hospita CAPSULE BY CAPSULE BY TAKE 1 l MOUTH FOUR MOUTH FOUR CAPSULE BY Clinics TIMES DAILY TIMES DAILY MOUTH FOUR FOR ANXIETY FOR ANXIETY TIMES DAILY FOR ANXIETY lisdexamfet lisdexamfet No 1capsul Q1D lisdexamfe [place] amine 20 mg amine 20 mg e(s) tamine 20 Communi capsule capsule mg capsule ty Take 1 Take 1 Take 1 Hospita capsule capsule capsule l every day every day every day Clinics by oral by oral by oral route. route. route. meclizine meclizine No meclizine [place] 25 mg 25 mg 25 mg Communi tablet TAKE tablet TAKE tablet ty 1 TABLET BY 1 TABLET BY TAKE 1 Hospita MOUTH EVERY MOUTH EVERY TABLET BY l 8 HOURS 8 HOURS MOUTH Cl inics NEEDED NEEDED EVERY 8 HOURS NEEDED meclizine meclizine No meclizine [place] 25 mg 25 mg 25 mg Communi tablet TAKE tablet TAKE tablet ty 1 TABLET BY 1 TABLET BY TAKE 1 Hospita MOUTH EVERY MOUTH EVERY TABLET BY l 8 HOURS 8 HOURS MOUTH Cl inics NEEDED NEEDED EVERY 8 HOURS NEEDED hydroxyzine hydroxyzine No hydroxyzin [place] pamoate 25 pamoate 25 e pamoate Communi mg capsule mg capsule 25 mg ty 1 tablet by 1 tablet by capsule 1 Hospita month as month as tablet by l needed for needed for month as Clinics anxiety, anxiety, needed for max four a max four a anxiety, day. day. max four a day. meclizine meclizine No meclizine [place] 25 mg 25 mg 25 mg Communi tablet TAKE tablet TAKE tablet ty 1 TABLET BY 1 TABLET BY TAKE 1 Hospita MOUTH EVERY MOUTH EVERY TABLET BY l 8 HOURS 8 HOURS MOUTH Cl inics NEEDED NEEDED EVERY 8 HOURS NEEDED hydroxyzine hydroxyzine No hydroxyzin [place] pamoate 25 pamoate 25 e pamoate Communi mg capsule mg capsule 25 mg ty TAKE 1 TAKE 1 capsule Hospita CAPSULE BY CAPSULE BY TAKE 1 l MOUTH FOUR MOUTH FOUR CAPSULE BY Clinics TIMES DAILY TIMES DAILY MOUTH FOUR FOR ANXIETY FOR ANXIETY TIMES DAILY FOR ANXIETY meclizine meclizine No meclizine [place] 25 mg 25 mg 25 mg Communi tablet TAKE tablet TAKE tablet ty 1 TABLET BY 1 TABLET BY TAKE 1 Hospita MOUTH EVERY MOUTH EVERY TABLET BY l 8 HOURS 8 HOURS MOUTH Cl inics NEEDED NEEDED EVERY 8 HOURS NEEDED hydroxyzine hydroxyzine No hydroxyzin [place] pamoate 25 pamoate 25 e pamoate Communi mg capsule mg capsule 25 mg ty TAKE 1 TAKE 1 capsule Hospita CAPSULE BY CAPSULE BY TAKE 1 l MOUTH FOUR MOUTH FOUR CAPSULE BY Clinics TIMES DAILY TIMES DAILY MOUTH FOUR FOR ANXIETY FOR ANXIETY TIMES DAILY FOR ANXIETY meclizine meclizine No meclizine [place] 25 mg 25 mg 25 mg Communi tablet TAKE tablet TAKE tablet ty 1 TABLET BY 1 TABLET BY TAKE 1 Hospita MOUTH EVERY MOUTH EVERY TABLET BY l 8 HOURS 8 HOURS MOUTH Cl inics NEEDED NEEDED EVERY 8 HOURS NEEDED hydroxyzine hydroxyzine No hydroxyzin [place] pamoate 25 pamoate 25 e pamoate Communi mg capsule mg capsule 25 mg ty TAKE 1 TAKE 1 capsule Hospita CAPSULE BY CAPSULE BY TAKE 1 l MOUTH FOUR MOUTH FOUR CAPSULE BY Clinics TIMES DAILY TIMES DAILY MOUTH FOUR FOR ANXIETY FOR ANXIETY TIMES DAILY FOR ANXIETY meclizine meclizine No meclizine [place] 25 mg 25 mg 25 mg Communi tablet TAKE tablet TAKE tablet ty 1 TABLET BY 1 TABLET BY TAKE 1 Hospita MOUTH EVERY MOUTH EVERY TABLET BY l 8 HOURS 8 HOURS MOUTH Cl inics NEEDED NEEDED EVERY 8 HOURS NEEDED meclizine meclizine No meclizine [place] 25 mg 25 mg 25 mg da tablet TAKE tablet TAKE tablet Episcop 1 TABLET BY 1 TABLET BY TAKE 1 al MOUTH EVERY MOUTH EVERY TABLET BY Health 8 HOURS 8 HOURS MOUTH Ou treac NEEDED NEEDED EVERY 8 h HOURS Program NEEDED Vital Signs Vital Name Observation Time Observation Value Comments Source Systolic blood 2022-08-28 13:04:00 113 mm[facility]Hg[facility] 2022-08-28 13:04:00 57 mm[Hg] [facility] Heart rate 2022-08-28 13:04:00 76 /min [facility] Respiratory rate 2022-08-28 13:04:00 16 /min [facility] height 2022-08-28 13:04:00 167.6 cm [facility] Body weight 2022-08-28 13:04:00 60.918 kg [facility] BMI 2022-08-28 13:04:00 21.68 kg/m2 [facility] Oxygen saturation in 2022-08-28 13:04:00 98 /min University Arterial blood by [facility] Pulse oximetry Branch BP Diastolic 2021-07-06 00:00:00 52 mm[Hg] [facility] Clinic s Height 2021-07-06 00:00:00 66.5 [in_i] [facility] s BMI (Body Mass 2021-07-06 00:00:00 22.4 kg/m2 [place] [facility] s BP Systolic 2021-07-06 00:00:00 92 mm[Hg] [facility] s Body Weight 2021-07-06 00:00:00 2256 [oz_av] [facility] s BP Diastolic 2021-04-16 00:00:00 76 mm[Hg] [facility] s Height 2021-04-16 00:00:00 66.5 [in_i] [facility] s BMI (Body Mass 2021-04-16 00:00:00 23.4 kg/m2 [place] [facility] s BP Systolic 2021-04-16 00:00:00 112 mm[Hg] [facility] s Body Weight 2021-04-16 00:00:00 2352 [oz_av] [facility] s Height 2021-03-08 00:00:00 66.5 [in_i] [facility] s BP Diastolic 2021-01-22 00:00:00 62 mm[Hg] [facility] s Height 2021-01-22 00:00:00 66.5 [in_i] [facility] s BMI (Body Mass 2021-01-22 00:00:00 22.6 kg/m2 [place] [facility] s BP Systolic 2021-01-22 00:00:00 102 mm[Hg] [facility] s Body Weight 2021-01-22 00:00:00 2272 [oz_av] [facility] Clinic s BP Diastolic 2020-12-22 00:00:00 82 mm[Hg] [facility] Clinic s Height 2020-12-22 00:00:00 66.5 [in_i] [facility] Clinic s BMI (Body Mass 2020-12-22 00:00:00 21.9 kg/m2 [facility]) [facility] Clinic s BP Systolic 2020-12-22 00:00:00 130 mm[Hg] [facility] s Body Weight 2020-12-22 00:00:00 2208 [oz_av] [facility] s BP Diastolic 2020-12-08 00:00:00 42 mm[Hg] [facility] s Height 2020-12-08 00:00:00 66.5 [in_i] [facility] s BMI (Body Mass 2020-12-08 00:00:00 21.9 kg/m2 [facility]) [facility] s BP Systolic 2020-12-08 00:00:00 84 mm[Hg] [facility] s Body Weight 2020-12-08 00:00:00 2208 [oz_av] [facility] s BP Diastolic 2020-09-06 00:00:00 74 mm[Hg] [place] [facility] Height 2020-09-06 00:00:00 66 [in_i] [place] [facility] BMI (Body Mass 2020-09-06 00:00:00 21 kg/m2 [facility] Index) [facility] BP Systolic 2020-09-06 00:00:00 122 mm[Hg] [place] [facility] Body Weight 2020-09-06 00:00:00 2080 [oz_av] [place] [facility] BP Diastolic 2019-04-21 00:00:00 78 mm[Hg] [place] [facility] Height 2019-04-21 00:00:00 66 [in_i] [place] [facility] BMI (Body Mass 2019-04-21 00:00:00 21.8 kg/m2 [place] [facility] Index) [facility] BP Systolic 2019-04-21 00:00:00 136 mm[Hg] [place] [facility] Body Weight 2019-04-21 00:00:00 135 [lb_av] [place] [facility] Procedures Procedure Date / Time Performing Clinician Source Performed electrocardiogram 2020-12-08 00:00:00 [facility] US, transvaginal 2019-04-21 00:00:00 [facility] Tubal Ligation 2015-04-03 00:00:00 [facility] Ligation of Fallopian Tube [facility] Plan of Care Planned Activity Planned Date Details Comments Source Diagnostic Test 2021-07-06 CMP, serum or [place] [facility] Pending 00:00:00 plasma [code = Hospital Clin ics CMP, serum or plasma] Diagnostic Test 2021-07-06 HbA1c (hemoglobin [place] [facility] Pending 00:00:00 A1c), blood [code Hospital C linics = HbA1c (hemoglobin A1c), blood] Diagnostic Test 2021-07-06 TSH, serum or [place] Comm unity Pending 00:00:00 plasma [code = Hospital Clin ics TSH, serum or plasma] Diagnostic Test 2021-07-06 [facility]00 [code = CBC w/ Hospital Clin ics auto diff] Diagnostic Test 2020-09-06 TSH + free T4, [facility] Pending 00:00:00 serum [code = TSH Health Out reach + free T4, serum] Program Diagnostic Test 2020-09-06 CBC w/ auto diff [place] [facility] Pending 00:00:00 [code = CBC w/ Health Outrea ch auto diff] Program Diagnostic Test 2020-09-06 CMP, serum or [facility] Pending 00:00:00 plasma [code = Health Outrea ch CMP, serum or Program plasma] Diagnostic Test 2020-09-06 lipid panel, serum [place] [facility] control specialist [facility] Pending 00:00:00 [code = lipid Health Outreac h panel, serum] Program Diagnostic Test 2020-09-06 HbA1c (hemoglobin [place] [facility] Pending 00:00:00 A1c), blood [code Health Out reach = HbA1c Program (hemoglobin A1c), blood] Diagnostic Test 2020-09-06 vitamin D, [facility] Pending 00:00:00 25-hydroxy, total, Health Ou [place] serum [code = Program vitamin D, 25-hydroxy, total, serum] Diagnostic Test 2020-09-06 urinalysis, [facility] Pending 00:00:00 dipstick [code = Health Outr each urinalysis, Program dipstick] Diagnostic Test 2020-09-06 PT/PTT, plasma [facility] Pending 00:00:00 [code = PT/PTT, Health Outre ach plasma] Program Encounters Start End Encounter Admission Attending Care Care Encounter Source Date/Time Date/Time Type Type Clinicians Facility Department ID 2022-11-05 2022-11-05 Refill Pattie [facility] [id number] Univers 00:00:00 00:00:00 , Myriam BOND [id number] ity of Ivelisse DIALLO [id number] Jovan as NURIA?BLEA [id number] Dc baldev [address] MEDICAL OFFICE BUILDING 2022-10-09 2022-10-09 Outpatient R PATTIE [facility] [id number] Univers 09:40:00 09:40:00 , MYRIAM hilliard of [facility] 2022-08-29 2022-08-29 Patient Giancarlo [facility] [id number] Univers 00:00:00 00:00:00 Outreach Celia [facility] [id number] i ty of YOEL [id number] Jovan as NURIA?BLEA [id number] Dc baldev AVALOSEY [address] [place] MEDICAL OFFICE [facility] 2022-08-28 2022-08-28 Outpatient R PATTIE [facility] [id number] Univers 08:56:46 23:59:00 , MYRIAM hilliard [facility] [place] 2022-08-28 2022-08-28 [facility], Ang - Db [facility] [id number] Univers 09:15:00 09:30:00 Visit [place]am [facility] 350.1 .[id number] ity of [facility] [id number] Jovan as NURIA?BLEA [id number] Dc baldev DREW [address] [facility] OFFICE [facility] 2022-08-28 2022-08-28 Office [place] [facility] [id number] [facility] 08:00:00 08:45:26 Visit , Myriam BOND [id number] ity of Ivelisse [facility] [id number] Jovan as NURIA?BLEA [id number] [address] OFFICE [facility] 2022-08-27 2022-08-27 Outpatient R ADAMRufino [facility] [id number] Univers 13:00:00 13:00:00 JULI princessbabak [facility] [place] 2021-07-06 2021-07-06 Outpatient ERHEIDI_R [facility] [id number] [place] 11:16:00 11:16:00 [id number] Commun i ty Hospita l Clinics 2021-07-06 2021-07-06 Ricardo [facility] [place] 00:00:00 00:00:00 [facility] DO: [address] Hospit a [facility] l [address], HOSPITAL Clinic s [place], [place] CLINIC, [address] RENALDO , Ph. [phone] 2021-07-06 2021-07-06 Outpatient Renaldo [facility] [id number] 00:00:00 00:00:00 Ricardo [id number] Ubaldo [id number] 2021-04-30 2021-04-30 Outpatient ERICKSON_R [facility] [address] [place] 11:19:00 11:19:00 [id number] Commun i ty Hospita l Clinics 2021-04-16 2021-04-16 Outpatient ERICKSON_R [facility] [address] [place] 02:34:00 02:34:00 0207 Commun i ty Hospita l Clinics 2021-04-16 2021-04-16 Outpatient Ambriz, [facility] [id number] 00:00:00 00:00:00 Ricardo [id number] Ubaldo [id number] 2021-04-16 2021-04-16 Ricardo [facility] [place] 00:00:00 00:00:00 [facility] ty DO: [address] Hospit a [facility] [address], HOSPITAL [facility] [place], [place] CLINIC, [phone] RENALDO , Ph. 2021-03-13 2021-03-13 Outpatient ERICKSON_R [facility] [id number] [place] 03:02:00 03:02:00 0104 Commun i ty Hospita l Clinics 2021-03-12 2021-03-12 Outpatient ERICKSON_R [facility] [id number] [place] 04:48:00 04:48:00 0103 Commun i ty Hospita l Clinics 2021-03-08 2021-03-08 Outpatient Ambriz, [facility] [id number] 00:00:00 00:00:00 Ricardo [id number] Ubaldo [id number] 2021-03-08 2021-03-08 Ricardo [facility] [place] [id number] [place] 00:00:00 00:00:00 [facility] ty DO: [address], CLINIC [address], [place] [address] , Ph. 2021-01-22 2021-01-22 Outpatient ERICKSON_R [facility] [id number] [place] 10:21:00 10:21:00 [id number] Commun i ty Hospita l Clinics 2021-01-22 2021-01-22 Outpatient Renaldo [facility] [id number] 00:00:00 00:00:00 Ricardo [id number] Ubaldo [id number] 2021-01-22 2021-01-22 Ricardo [facility] [place] [id number] 15 [place] 00:00:00 00:00:00 [facility] ty DO: [address] [facility] a [facility], [place], [place], [address] RENALDO , Ph. [phone] 2020-12-22 2020-12-22 Outpatient ERICKSON_R [facility] 1117 [place] 10:44:00 10:44:00 1015 Commun i ty Hospita [facility] Clinics 2020-12-22 2020-12-22 Outpatient Renaldo [facility] [id number] 00:00:00 00:00:00 Ricardo [id number] Ubaldo [id number] 2020-12-22 2020-12-22 Ricardo [facility] [place] [id number] 15 [place] 00:00:00 00:00:00 [facility] ty DO: [address] a [facility], [place], [address] RENALDO , Ph. [phone] 2020-12-08 2020-12-08 Outpatient ERICKSON_R [facility] [address] [place] 11:13:00 11:13:00 1001 Commun i ty Hospita l Clinics 2020-12-08 2020-12-08 Outpatient Ambriz [facility] [id number] 00:00:00 00:00:00 Ricardo [id number] Ubaldo [id number] 2020-12-08 2020-12-08 Ricardo [facility] [place] - 00:00:00 00:00:00 [facility] DO: [address] Hospit a [place], [facility] l [address], HOSPITAL Clinic [place], [place] CLINIC, [address] RENALDO , Ph. 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 2019-04-20 2019-04-20 Outpatient [facility] 108 [id number] [place] 11:08:00 11:08:00 SSA [id number] da [facility] Program 2018-10-12 2018-10-12 Telephone Des Walker [id number] 00:00:00 00:00:00 [place] [id number] Tanisha [id number] Results Test Description Test Time Test Comments Results Result Comments Source SARS-CoV-2 (COVID-19) Ag [Presence] in Respiratory spe cimen by 2021-03-08 12:10:00 Rapid immunoassay Test Item Value Reference Range Interpretation Comme nts SARS CoV 2 (test code = SARS CoV 2) positive [facility] - Urine 2020-09-06 12:28:00 Test Item Value Reference Range Interpretation Comments Leukocytes (test code = Leukocytes) - Nitrite (test code = Nitrite) - Urobilinogen (test code = - Urobilinogen) Protein (test code = Protein) - pH (test code = pH) 7.0 Blood (test code = Blood) - Specific [place] (test code = Specific 1.010 [place]) Ketone (test code = Ketone) - Bilirubin (test code = Bilirubin) - Glucose (test code = Glucose) - Appearance (test code = Appearance) clear Color (test code = Color) yellow [facility] Outreach Program
[2023-01-12] MEDS ORDERED: DIPHENHYDRAMINE 50 MG/ML VIAL ONE (20:57)
[2023-01-12] MEDS ORDERED: KETOROLAC 30 MG/ML INJ ONE (20:58)
[2023-01-12] MEDS ORDERED: NA CHLORIDE 0.9% 1,000 ML ONE ×2 (20:58→21:20)
[2023-01-12] MEDS ORDERED: ACETAMINOPHEN 500 MG TAB ONE (20:58)
[2023-01-12] MEDS ORDERED: GUAIFENESIN/DM 5 ML UCUP ONE (20:58)
[2023-01-12] MEDS ORDERED: NA CHLORIDE 0.9% 50 ML ONE (20:59)
[2023-01-12 21:17] LABS: Specific Gravity 1.011 (1.005-1.030)
[2023-01-12] MEDS ORDERED: METOCLOPRAMIDE 10 MG/2mL INJ ONE (21:17)
[2023-01-12 21:20] LABS: Absolute Lymphocytes (CBC) 1.4 K/uL (0.7-4.9); Hematocrit 42.8 % (36.0-45.0); Lymphocytes % 37.2 % (15.3-44.8); MCV 92.6 fL (80-100); MPV 8.1 fL (7.6-11.3); Platelets 141 thou/uL (152-406); RBC Red Blood Cell Count 4.62 M/uL (3.86-4.86); Specific Gravity 1.011 (1.005-1.030); Urine Bacteria <20 /HPF (<20); Urine Bilirubin NEGATIVE (Negative); Urine Blood Negative (Negative); Urine Clarity Extremely Turbid (Clear); Urine Color Light-Yellow (Yellow); Urine Glucose NEGATIVE (Negative); Urine Mucus 1+ /HPF (None Seen); Urine Protein NEGATIVE (Negative); Urine RBC <5 /HPF (None Seen); Urine Urobilinogen Normal (Normal); Urine pH 5.5 (5.0-7.0)
[2023-01-12] MEDS ORDERED: NA CHLORIDE 0.9% 100 ML ONE (21:20)
[2023-01-12] MEDS ORDERED: NA CHLORIDE 0.9% 500 ML ONE (21:20)
[2023-01-12] MEDS ORDERED: PIPERACIL/TAZO 3.375 GM VIAL IV ONE (21:20)
[2023-01-12] MEDS ORDERED: VANCOMYCIN 1 GM/VIAL ONE (21:20)
[2023-01-12 21:35] LABS: Albumin 3.6 g/dL (3.4-5.0); Bilirubin Total 0.3 mg/dL (0.2-1.0); Potassium 3.4 mEq/L (3.5-5.1); Protein, Total 7.1 g/dL (6.4-8.2)
--- NOTE | 2023-01-12 22:27 | ER ---
Nurse's Notes [facility] Name: Enma Holley Age: 32 yrs Sex: Female : 1990 Arrival Date: 01/12/2023 Time: 18:47 Bed 6 Private MD: Diagnosis: Other specified viral diseases;Acute systemic viral illness, acute common cold, history of exposure to influenza B Presentation: 01/12 19:13 Chief complaint: Fever, chills, malaise, congestion, headache, body aches, and cough x hb 1 week. Daughter has Flu B. Coronavirus screen: Client presents with at least one sign or symptom that may indicate coronavirus-19. Provider contacted for isolation considerations. Ebola Screen: No symptoms or risks identified at this time. Initial Sepsis Screen: Does the patient meet any 2 criteria? No. Patient's initial sepsis screen is negative. Does the patient have a suspected source of infection? No. Patient's initial sepsis screen is negative. Risk Assessment: Do you want to hurt yourself or someone else? Patient reports no desire to harm self or others. Onset of symptoms was January 05, 2023. 19:13 Method Of Arrival: Ambulatory hb 19:13 Acuity: CHANEL 3 hb Historical: - Allergies: 19:14 No Known Allergies; hb - Home Meds: 19:14 None [Active]; hb - PMHx: 19:14 None; hb - PSHx: 19:14 None; hb - Immunization history:: Adult Immunizations up to date. - Social history:: Smoking status: . - Family history:: not pertinent. Screenin:53 [facility] ED Fall Risk Assessment (Adult) History of falling in the last 3 months, km8 including since admission No falls in past 3 months (0 pts) Confusion or Disorientation No (0 pts) Intoxicated or Sedated No (0 pts) Impaired Gait No (0 pts) Mobility Assist Device Used No (0 pt) Altered Elimination No (0 pt) Score/Fall Risk Level 0 - 2 = Low Risk Oriented to surroundings, Maintained a safe environment, Educated pt \T\ family on fall prevention, incl call for assistance when getting out of bed, Assessed \T\ reinforced patient's understanding of fall precautions. Abuse screen: Denies threats or abuse. Denies injuries from another. Nutritional screening: No deficits noted. Tuberculosis screening: No symptoms or risk factors identified. Assessment: 20:53 General: Appears in no apparent distress. uncomfortable, Behavior is calm, cooperative, km8 appropriate for age. Pain: Complains of pain in generalized Pain currently is 8 out of 10 on a pain scale. Quality of pain is described as aching. Neuro: [place] Agitation-Sedation Scale (RASS): 0 - Alert and Calm Level of Consciousness is awake, alert, obeys commands, Oriented to person, place, time, situation. Cardiovascular: Denies chest pain, Capillary refill < 3 seconds Patient's skin is warm and dry. Respiratory: Reports shortness of breath on exertion cough that is Airway is patent Respiratory effort is even, unlabored, Respiratory pattern is regular, symmetrical. GI: No signs and/or symptoms were reported involving the gastrointestinal system. : No signs and/or symptoms were reported regarding the genitourinary system. EENT: Reports nasal congestion. Derm: Skin is intact, Skin is dry, Skin is normal, Skin temperature is warm. Musculoskeletal: No signs and/or symptoms reported regarding the musculoskeletal system. Circulation, motion, and sensation intact. Range of motion: intact in all extremities. 22:01 Reassessment: Patient appears in no apparent distress at this time. Patient and/or km8 family updated on plan of care and expected duration. Pain level reassessed. pt sleeping at this time. Vital Signs: 19:13 BP 115 / 73; Pulse 95; Resp 20; Temp 101.5(O); Pulse Ox 100% on R/A; Weight 58.97 kg; hb Height 5 ft. 6 in. ; Pain 8/10; 20:53 BP 110 / 67; Pulse 80; Resp 16; Pulse Ox 100% on R/A; km8 21:31 BP 105 / 63; Pulse 72; Resp 18; Pulse Ox 100% ; la4 22:00 BP 95 / 50; Pulse 62; Resp 14 S; Pulse Ox 95% on R/A; km8 22:45 BP 93 / 58 LA; Pulse 53 MON; Resp 16; Temp 98.4(O); Pulse Ox 98% on R/A; Pain 0/10; la4 19:13 Body Mass Index 20.98 (58.97 kg, 167.64 cm) hb 19:13 Pain Scale: Adult hb 22:45 Pain Scale: Adult la4 [place] Coma Score: 21:30 Eye Response: spontaneous(4). Motor Response: obeys commands(6). Verbal Response: la4 oriented(5). Total: 15. 22:45 Eye Response: spontaneous(4). Motor Response: obeys commands(6). Verbal Response: la4 oriented(5). Total: 15. ED Course: 18:50 Patient arrived in ED. mr 19:04 Timoteo Urrutia MD is Attending Physician. sp4 19:14 Triage completed. hb 19:14 Arm band placed on. hb 20:33 Addison Negro, RN is Primary Nurse. la4 20:52 Urinalysis W/Microscopic Sent. km8 20:52 CBC with Diff Sent. km8 20:53 Patient has correct armband on for positive identification. Bed in low position. Call km8 light in reach. Side rails up X 1. Client placed on continuous cardiac and pulse oximetry monitoring. NIBP monitoring applied. Door closed. Noise minimized. Warm blanket given. 20:53 CMP Sent. km8 20:53 COVID-19 SARS RT PCR Sent. km8 20:53 Test, Urine Sent. km8 20:53 Influenza Screen (a \T\ B) Sent. km8 20:53 Inserted saline lock: 20 gauge in right antecubital area, using aseptic technique. km8 Blood collected. Patient maintains SpO2 saturation greater than 95% on room air. 22:45 Provided Education on: DC instructions and prescriptions given. la4 22:45 No provider procedures requiring assistance completed. IV discontinued, intact, la4 bleeding controlled, No redness/swelling at site. Pressure dressing applied. Administered Medications: 20:59 Drug: NS 0.9% IV 1000 ml IV at 1 bolus Per protocol; 1000 mL bolus Route: IV; Rate: 1 la4 bolus; Site: right antecubital; 22:36 Follow up: Response: No adverse reaction; IV Status: Completed infusion; IV Intake: km8 1000ml 20:59 Drug: TORadol - Ketorolac IVP 30 mg IVP once Route: IVP; Site: right antecubital; la4 22:01 Follow up: Response: No adverse reaction km8 20:59 Drug: metoCLOPramide IVP 10 mg IVP once; over 1 to 2 minutes Route: IVP; Site: right la4 antecubital; 22:01 Follow up: Response: No adverse reaction km8 20:59 Drug: diphenhydrAMINE IVP 25 mg IVP once Route: IVP; Site: right antecubital; la4 22:01 Follow up: Response: No adverse reaction km8 20:59 Drug: Dextromethorphan-Guaifenesin PO Liquid 10 mg-100 mg/5 mL 10 ml PO once Route: PO; la4 22:00 Follow up: Response: No adverse reaction km8 20:59 Drug: Acetaminophen PO 1000 mg PO once Route: PO; la4 22:00 Follow up: Response: No adverse reaction km8 Medication: 22:45 VIS not applicable for this client. la4 Intake: 22:36 IV: 1000ml; Total: 1000ml. km8 Outcome: 22:27 Discharge ordered by . jasmin 22:47 Patient left the ED. la4 Signatures: Mackenzie Bunch, Reg Reg mr Mi Flower, ELIZABETH RN Timoteo Oliveira MD MD sp4 Desi Trinh RN RN Addison Kruger RN RN la4 Corrections: (The following items were deleted from the chart) 19:14 19:13 Acuity: CHANEL 4 hb hb 19:15 19:13 Pulse 95bpm; Resp 20bpm; Pulse Ox 100% RA; Temp 101.5F Oral; hb hb 21:31 21:30 BP 96 / 59; Pulse 87bpm; Resp 18bpm; Pulse Ox 99% RA; la4 la4
--- NOTE | 2023-01-12 22:27 | EDPHYS ---
Physician Documentation [facility] Name: Enma Holley Age: 32 yrs Sex: Female : 1990 Arrival Date: 01/12/2023 Time: 18:47 Bed 6 Private MD: ED Physician Timoteo Urrutia HPI: 01/12 19:04 This 32 yrs old Female presents to ER via Unassigned with complaints of Flu sp4 Symptoms. 19:20 PMH - Historical: Allergies: No Known Allergies Home Meds: None; PMHx: None; PSHx: sp4 Tubal ligation; . Patient is a very pleasant 32-year-old female who presents with symptoms of viral illness starting Friday 7 days ago. Patient reports fevers, chills, body aches, headache, feeling unwell, fatigue, cough, and overall feeling badly. Patient's daughter last week was diagnosed with influenza B. Patient is alarmed that her symptoms are not going away. . Historical: - Allergies: 19:14 No Known Allergies; hb - Home Meds: 19:14 None [Active]; hb - PMHx: 19:14 None; hb - PSHx: 19:14 None; hb - Immunization history:: Adult Immunizations up to date. - Social history:: Smoking status: . - Family history:: not pertinent. ROS: 19:20 Constitutional: Positive fever positive chills positive cough positive aches positive sp4 headache positive fatigue positive generalized malaise 19:20 All other systems are negative, Exam: 19:20 Constitutional: This is a well developed, well nourished patient who is awake, alert, sp4 ill-appearing but nontoxic febrile on arrival Head/Face: Normocephalic, atraumatic. Eyes: Pupils equal round and reactive to light, extra-ocular motions intact. Lids and lashes normal. Conjunctiva and sclera are not injected. Cornea within normal limits. Periorbital areas with no swelling, redness, or edema. ENT: Nares patent. No nasal discharge, no septal abnormalities noted. Tympanic membranes are normal and external auditory canals are clear. Oropharynx with no redness, swelling, or masses, exudates, or evidence of obstruction, uvula midline. Mucous membranes moist. Neck: Trachea midline, no thyromegaly or masses palpated, and no cervical lymphadenopathy. Supple, full range of motion without nuchal rigidity, or vertebral point tenderness. Chest/axilla: Normal chest wall appearance and motion. Nontender with no deformity. No lesions are appreciated. Cardiovascular: Regular rate and rhythm with a normal S1 and S2. No gallops, murmurs, or rubs. Normal PMI, no JVD. No pulse deficits. Respiratory: Lungs have equal breath sounds bilaterally, clear to auscultation and percussion. No rales, rhonchi or wheezes noted. No increased work of breathing, no retractions or nasal flaring. Abdomen/GI: Soft, non-tender, with normal bowel sounds. No distension or tympany. No guarding or rebound. No evidence of tenderness throughout. Back: No spinal tenderness. No costovertebral tenderness. Skin: Warm, dry with normal turgor. Normal color with no rashes, no lesions, and no evidence of cellulitis. MS/ Extremity: Pulses equal, no cyanosis. Neurovascular intact. Full, normal range of motion. Neuro: Awake and alert, GCS 15, oriented to person, place, time, and situation. Cranial nerves II-XII grossly intact. Motor strength 5/5 in all extremities. Sensory grossly intact. Psych: Awake, alert, with orientation to person, place and time. Behavior, mood, and affect are within normal limits Vital Signs: 19:13 BP 115 / 73; Pulse 95; Resp 20; Temp 101.5(O); Pulse Ox 100% on R/A; Weight 58.97 kg; hb Height 5 ft. 6 in. ; Pain 8/10; 20:53 BP 110 / 67; Pulse 80; Resp 16; Pulse Ox 100% on R/A; km8 21:31 BP 105 / 63; Pulse 72; Resp 18; Pulse Ox 100% ; la4 22:00 BP 95 / 50; Pulse 62; Resp 14 S; Pulse Ox 95% on R/A; km8 22:45 BP 93 / 58 LA; Pulse 53 MON; Resp 16; Temp 98.4(O); Pulse Ox 98% on R/A; Pain 0/10; la4 19:13 Body Mass Index 20.98 (58.97 kg, 167.64 cm) hb 19:13 Pain Scale: Adult hb 22:45 Pain Scale: Adult la4 [place] Coma Score: 21:30 Eye Response: spontaneous(4). Motor Response: obeys commands(6). Verbal Response: la4 oriented(5). Total: 15. 22:45 Eye Response: spontaneous(4). Motor Response: obeys commands(6). Verbal Response: la4 oriented(5). Total: 15. MDM: 19:17 Patient medically screened. sp4 22:21 Differential Diagnosis altered mental status, sepsis, flu. Data reviewed: vital signs, sp4 nurses notes, old medical records, lab test result(s). Consideration of Admission/Observation Escalation of care including admission/observation considered. ED course: COVID test today is negative, flu negative negative White count slightly depressed 3.8 there is no significant electrolyte anomaly normal LFT, no sign of urinary tract infection.. 22:25 ED course: Patient feels a little better. She is stable for discharge home with 5-day sp4 bedrest, work release for the next 5 days as needed ibuprofen every 6 hours as needed dextromethorphan for cough as needed Benadryl before bedtime as needed Phenergan for nausea generous p.o. hydration. . 01/12 19:05 Order name: Influenza Screen (a \T\ B); Complete Time: 22:20 sp4 01/12 19:05 Order name: Test, Urine; Complete Time: 21:25 sp4 01/12 19:05 Order name: COVID-19 SARS RT PCR; Complete Time: 22:20 sp4 01/12 19:16 Order name: CBC with Diff; Complete Time: 21:25 sp4 01/12 19:16 Order name: CMP; Complete Time: 22:20 sp4 01/12 19:16 Order name: Urinalysis W/Microscopic; Complete Time: 21:25 sp4 01/12 19:16 Order name: IV Saline Lock; Complete Time: 20:52 sp4 01/12 19:16 Order name: Labs collected and sent; Complete Time: 20:52 sp4 Administered Medications: 20:59 Drug: NS 0.9% IV 1000 ml IV at 1 bolus Per protocol; 1000 mL bolus Route: IV; Rate: 1 la4 bolus; Site: right antecubital; 22:36 Follow up: Response: No adverse reaction; IV Status: Completed infusion; IV Intake: km8 1000ml 20:59 Drug: TORadol - Ketorolac IVP 30 mg IVP once Route: IVP; Site: right antecubital; la4 22:01 Follow up: Response: No adverse reaction km8 20:59 Drug: metoCLOPramide IVP 10 mg IVP once; over 1 to 2 minutes Route: IVP; Site: right la4 antecubital; 22:01 Follow up: Response: No adverse reaction 8 20:59 Drug: diphenhydrAMINE IVP 25 mg IVP once Route: IVP; Site: right antecubital; la4 22:01 Follow up: Response: No adverse reaction km8 20:59 Drug: Dextromethorphan-Guaifenesin PO Liquid 10 mg-100 mg/5 mL 10 ml PO once Route: PO; la4 22:00 Follow up: Response: No adverse reaction 8 20:59 Drug: Acetaminophen PO 1000 mg PO once Route: PO; la4 22:00 Follow up: Response: No adverse reaction km8 Disposition Summary: 01/12/23 22:27 Discharge Ordered Problem: new sp4 Symptoms: have improved sp4 Condition: Stable sp4 Diagnosis - Other specified viral diseases sp4 - Acute systemic viral illness, acute common cold, history of exposure to influenza sp4 B Followup: sp4 - With: Private Physician - When: 5 - 6 days - Reason: Recheck today's complaints Discharge Instructions: - Discharge Summary Sheet sp4 - Viral Illness, Adult sp4 Forms: - Work release form bp - Patient Portal Instructions sp4 Prescriptions: - dextromethorphan-guaifenesin 30-200 mg/5 mL Oral liquid - take 10 milliliter ORAL route every 8 hours PRN cough; 200 milliliter; Refills: sp4 0, Product Selection Permitted - Ibuprofen 800 mg Oral tablet - take 1 tablet ORAL route every 8 hours As needed PRN fever or body aches ( may sp4 take together with Tylenol ); 30 tablet; Refills: 0, Product Selection Permitted - promethazine 25 mg Oral tablet - take 1 tablet ORAL route every 8 hours As needed PRN nausea; 30 tablet; sp4 Refills: 0, Product Selection Permitted Signatures: Dispatcher [employer] Mi Murrieta RN RN hb Potepalov, Sergey, MD MD sp4 Negro, La'Bastian, RN RN la4 Ziggy, Desi RN km8
[2023-01-12 22:59] VITALS: BP 93/58; TEMP 98.4; O2SAT 98
== END 2023-01-12 22:47 | disposition home or self-care (01) ==
LOC: ER 18:47
DX: J00 Acute nasopharyngitis [common cold] (principal); B34.9 Viral infection, unspecified; Z11.52 Encounter for screening for COVID-19; Z20.822 Contact with and (suspected) exposure to COVID-19
CPT/HCPCS: 36415; 80053; 81001; 81025; 85025; 87635; 87804; 96361; 96374; 96375; 99285; J1200; J2543; J2765; J7030; J7040